=== PATIENT | male | born 1930 | race Caucasian/White ===

== ENCOUNTER 2018-03-20 20:32 | Emergency (ER) | payer MEDICARE ==
[2018-03-20 21:19] LABS: ABS Basophils 0 10^3/ul (0-0.2); ABS Eosinophils 0 10^3/ul (0-0.6); ABS Lymphocytes 0.3 10^3/ul (1.0-4.8); ABS Monocytes 0.2 10^3/ul (0-0.8); ABS Neutrophils 3.1 10^3/ul (1.5-7.7); ABS Nucleated RBC 0 10^3/ul; Eosinophil % 0.8 % (0-6); Hematocrit 33 % (42-52); Hemoglobin 11.6 g/dl (14.0-18.0); Lymphocyte % 8.3 % (25-47); Mean Corpuscular HGB Conc 35 g/dl (31-36); Mean Corpuscular Hemoglobin 35 pg (27-31); Mean Corpuscular Volume 101 fL (80-94); Mean Platelet Volume 6.5 um3 (7.4-10.4); Nucleated Red Blood Cells % 0.1; Platelet Count 136 10^3/ul (150-450); Red Blood Count 3.31 10^6/ul (4.00-5.40); Red Cell Distribution Width 13 % (10.5-15); White Blood Count 3.7 10^3/ul (3.5-10.8)
[2018-03-20 21:32] LABS: INR 1.5 (0.77-1.02)
[2018-03-20 21:35] LABS: EGFR Non-African American 98.1 (>60)
--- NOTE | 2018-03-20 21:55 | RAD ---
EXAM: CT Head Without Intravenous Contrast CLINICAL HISTORY: 87 years old, male; Injury or trauma; Fall TECHNIQUE: Axial computed tomography images of the head/brain without intravenous contrast. All CT scans at this facility use at least one of these dose optimization techniques: automated exposure control; mA and/or kV adjustment per patient size (includes targeted exams where dose is matched to clinical indication); or iterative reconstruction. COMPARISON: CT BRAIN WO 07/30/2014 3:15 AM FINDINGS: Brain: Diffuse cerebral cortical volume loss. Geographic areas of decreased density in the subcortical and periventricular white matter consistent with microvascular leukoencephalopathy. No evidence of acute intracranial hemorrhage. No intracranial mass or mass effect. Ventricles: Ventriculomegaly commensurate with the degree of cerebral cortical volume loss and white matter disease. No obstructive hydrocephalus. Bones/joints: Unremarkable. No acute fracture. Soft tissues: Soft tissue swelling overlying the left frontal calvarium. No underlying fracture. Vasculature: Vascular calcification. Sinuses: Unremarkable as visualized. No acute sinusitis. Mastoid air cells: Unremarkable as visualized. No mastoid effusion. Other findings: Since prior CT study of 08/09/2012, no new findings except for the soft tissue swelling overlying the left frontal calvarium. IMPRESSION: 1. Soft tissue swelling overlying the left frontal calvarium. No underlying fracture. 2. No acute intracranial hemorrhage. No intracranial mass or obstructive hydrocephalus.
--- NOTE | 2018-03-20 22:17 | RAD ---
EXAM: CT Maxillofacial Without Intravenous Contrast CLINICAL HISTORY: 87 years old, male; Injury or trauma; Fall; Initial encounter; Laceration; Head/scalp and forehead; Without loss of consciousness; Without residual foreign body; Additional info: Fall, facial injury TECHNIQUE: Axial computed tomography images of the face without intravenous contrast. All CT scans at this facility use at least one of these dose optimization techniques: automated exposure control; mA and/or kV adjustment per patient size (includes targeted exams where dose is matched to clinical indication); or iterative reconstruction. Coronal and sagittal reformatted images were created and reviewed. COMPARISON: No relevant prior studies available. FINDINGS: Bones/joints: No evidence of an acute facial fracture. Degenerative changes of the left temporal mandibular joint. No evidence of a nasal arch fracture. The perpendicular plate is deviated to the left of midline. Soft tissues: Soft tissue swelling overlying the left frontal calvarium. No underlying fracture. Orbits: Unremarkable. Sinuses: Mild mucoperiosteal thickening involving the right maxillary sinus. No air-fluid levels. Dental: Dental caries. There is disruption of the outer bony cortex of the maxilla involving a canine tooth on the left side with periapical lucency. Other carious tooth with some shows the presence of periapical lucencies. No evidence of an associated subcutaneous abscess. IMPRESSION: 1. Soft tissue swelling overlying the left frontal calvarium. No underlying fracture. No facial fracture. 2. Degenerative changes of the left temporomandibular joint. 3. Dental caries.
--- NOTE | 2018-03-20 22:20 | RAD ---
EXAM: CT Cervical Spine Without Intravenous Contrast CLINICAL HISTORY: 87 years old, male; Pain and injury or trauma; Fall; Initial encounter; Laceration; Without foreign body; Neck pain TECHNIQUE: Axial computed tomography images of the cervical spine without intravenous contrast. All CT scans at this facility use at least one of these dose optimization techniques: automated exposure control; mA and/or kV adjustment per patient size (includes targeted exams where dose is matched to clinical indication); or iterative reconstruction. Coronal and sagittal reformatted images were created and reviewed. COMPARISON: No relevant prior studies available. FINDINGS: Vertebrae: No evidence of an acute fracture involving the cervical vertebral bodies or posterior elements. Straightening of the normal cervical lordosis. No pathologic subluxation. Discs/spinal canal/neural foramina: Multilevel degenerative cervical disc disease and facet disease. No significant central canal stenosis. Variable degrees of neural foraminal narrowing secondary to degenerative changes of the uncovertebral joints and facet joints. Soft tissues: Unremarkable. Vasculature: Bilateral carotid artery calcification. Lung apices: Unremarkable as visualized. Other findings: Calcification of the ligaments and capsule surrounding the dens. This is consistent with calcium pyrophosphate deposition disease. IMPRESSION: 1. No evidence of acute fracture involving the cervical vertebral bodies or posterior elements. 2. Multilevel degenerative cervical disc disease and facet disease. No central canal stenosis. No significant bony neuroforaminal narrowing.
[2018-03-20] MEDS ORDERED: Lidocaine 1%* 5 ML VIAL INJ ONE (22:24)
--- NOTE | 2018-03-20 23:08 | ED ---
Laceration/Wound HPI - HPI Summary HPI Summary: Patient is a 87 y/o M BIBA w/ c/o laceration on nose, laceration on right side of face due to fall at 1800. Patient was in wheelchair, fell forward, and hit wooden piece of furniture. He states fall was not hard and reports that he has been drinking tonight. Patient states that he is on a blood thinner. LOC and spinal pain is denied. On triage, pain is denied and nothing is noted to aggravate/alleviate Sx. Home medications and allergies are reviewed. - History of Current Complaint Stated Complaint: FALL/HEAD LAC Time Seen by Provider: 03/20/18 20:40 Hx Obtained From: Patient Onset/Duration: Sudden Onset, Still Present Aggravating: Nothing Alleviating: Nothing Current Severity: None Pain Intensity: 0 Pain Scale Used: 0-10 Numeric - 0/10 - Allergy/Home Medications Allergies/Adverse Reactions: Allergies Allergy/AdvReac Type Severity Reaction Status Date / Time pregabalin [From Lyrica] Allergy Unknown Verified 03/20/18 21:00 Reaction Details Home Medications: Home Medications amLODIPine TAB* [Norvasc 5 mg TAB*] 5 mg PO DAILY 03/20/18 [History Confirmed ] PMH/Surg Hx/FS Hx/Imm Hx Cardiovascular History: Reports: Hx Hypercholesterolemia, Hx Hypertension, Hx Rheumatic Fever, Other Cardiovascular Problems/Disorders - stents GI History: Reports: Other GI Disorders - occassional pelvic pain associated with bm's not treated at this time History: Reports: Other Problems/Disorders - URINARY INCONTINENCE Musculoskeletal History: Reports: Other Musculoskeletal History - right hip replacement, uses cane r/t pain Sensory History: Reports: Hx Contacts or Glasses, Hx Hearing Problem Opthamlomology History: Reports: Hx Contacts or Glasses Neurological History: Reports: Other Neuro Impairments/Disorders - WEAKNESS LEFT HAND Psychiatric History: Reports: Hx Anxiety - Cancer History Cancer Type, Location and Year: PROSTATE CA - Surgical History Surgery Procedure, Year, and Place: hip replacement right,prostatectomy cancer 1992 , cardiac stent. R fem pop bypass jul 2012; right below knee amputation Infectious Disease History: No Infectious Disease History: Denies: Traveled Outside the [place] in Last 30 Days - Family History Known Family History: Negative: Blood Disorder - Social History Alcohol Use: Daily Substance Use Type: Reports: None Hx Tobacco Use: Yes Smoking Status (MU): Light Every Day Tobacco Smoker Type: Cigars Amount Used/How Often: 1 or 2 a day Have You Smoked in the Last Year: Yes Review of Systems Negative: Fever - on vitals, temp is 98.8 F Positive: Other - laceration on nose, laceration on right side of face All Other Systems Reviewed And Are Negative: Yes Physical Exam - Summary Physical Exam Summary: Appearance: Well appearing, no pain distress Skin: warm, dry, reflects adequate perfusion; bleeding, small laceration on his nose; bleeding laceration of his left ear. Small skin tear on right hand and right forearm Head/face: normal Eyes: EOMI, TERE ENT: normal Neck: supple, non-tender Respiratory: CTA, breath sounds present Cardiovascular: RRR, pulses symmetrical. Abdomen: non-tender, soft Bowel Sounds: present Musculoskeletal: strength/ROM intact; right below the knee amputation due to blood coot, 3+ pulses in LLE Neuro: normal, sensory motor intact, A&Ox3 Triage Information Reviewed: Yes Vital Signs On Initial Exam: Initial Vitals Temp Pulse Resp BP Pulse Ox 98.8 F 65 24 113/60 95 03/20/18 20:35 03/20/18 20:35 03/20/18 20:35 03/20/18 20:35 03/20/18 20:35 Vital Signs Reviewed: Yes Procedures - Procedure Summary Procedure Summary: YUDITH performed laceration repair. Diagnostics - Vital Signs Vital Signs Temp Pulse Resp BP Pulse Ox 03/20/18 22:22 69 116/55 98 03/20/18 22:00 59 93 03/20/18 21:53 68 107/48 97 03/20/18 21:00 66 95 03/20/18 20:53 65 113/60 94 03/20/18 20:52 52 92 03/20/18 20:35 98.8 F 65 24 113/60 95 - Laboratory Lab Results: Lab Results 03/20/18 03/20/18 03/20/18 Range/Units 21:09 21:09 21:09 WBC 3.7 (3.5-10.8) 10^3/ul RBC 3.31 L (4.00-5.40) 10^6/ul Hgb 11.6 L (14.0-18.0) g/dl Hct 33 L (42-52) % MCV 101 H (80-94) fL MCH 35 H (27-31) pg MCHC 35 (31-36) g/dl RDW 13 (10.5-15) % Plt Count 136 L (150-450) 10^3/ul MPV 6.5 L (7.4-10.4) um3 Neut % (Auto) 84.9 H (38-83) % Lymph % (Auto) 8.3 L (25-47) % [place] % (Auto) 4.9 (0-7) % Eos % (Auto) 0.8 (0-6) % Baso % (Auto) 1.1 (0-2) % Absolute Neuts (auto) 3.1 (1.5-7.7) 10^3/ul Absolute Lymphs (auto) 0.3 L (1.0-4.8) 10^3/ul Absolute Monos (auto) 0.2 (0-0.8) 10^3/ul Absolute Eos (auto) 0 (0-0.6) 10^3/ul Absolute Basos (auto) 0 (0-0.2) 10^3/ul Absolute Nucleated RBC 0 10^3/ul Nucleated RBC % 0.1 INR (Anticoag Therapy) 1.50 H (0.77-1.02) Sodium 129 L (135-145) mmol/L Potassium 3.6 (3.5-5.0) mmol/L Chloride 98 L (101-111) mmol/L Carbon Dioxide 23 (22-32) mmol/L Anion Gap 8 (2-11) mmol/L BUN 16 (6-24) mg/dL Creatinine 0.75 (0.67-1.17) mg/dL Est GFR ( Amer) 118.7 (>60) Est GFR (Non-Af Amer) 98.1 (>60) BUN/Creatinine Ratio 21.3 H (8-20) Glucose 113 H (70-100) mg/dL Calcium 8.7 (8.6-10.3) mg/dL Serum Alcohol (<10) mg/dL 03/20/18 Range/Units 21:11 WBC (3.5-10.8) 10^3/ul RBC (4.00-5.40) 10^6/ul Hgb (14.0-18.0) g/dl Hct (42-52) % MCV (80-94) fL MCH (27-31) pg MCHC (31-36) g/dl RDW (10.5-15) % Plt Count (150-450) 10^3/ul MPV (7.4-10.4) um3 Neut % (Auto) (38-83) % Lymph % (Auto) (25-47) % [place] % (Auto) (0-7) % Eos % (Auto) (0-6) % Baso % (Auto) (0-2) % Absolute Neuts (auto) (1.5-7.7) 10^3/ul Absolute Lymphs (auto) (1.0-4.8) 10^3/ul Absolute Monos (auto) (0-0.8) 10^3/ul Absolute Eos (auto) (0-0.6) 10^3/ul Absolute Basos (auto) (0-0.2) 10^3/ul Absolute Nucleated RBC 10^3/ul Nucleated RBC % INR (Anticoag Therapy) (0.77-1.02) Sodium (135-145) mmol/L Potassium (3.5-5.0) mmol/L Chloride (101-111) mmol/L Carbon Dioxide (22-32) mmol/L Anion Gap (2-11) mmol/L BUN (6-24) mg/dL Creatinine (0.67-1.17) mg/dL Est GFR ( Amer) (>60) Est GFR (Non-Af Amer) (>60) BUN/Creatinine Ratio (8-20) Glucose (70-100) mg/dL Calcium (8.6-10.3) mg/dL Serum Alcohol 99 H (<10) mg/dL Result Diagrams: 03/20/18 21:09 03/20/18 21:09 Lab Statement: Any lab studies that have been ordered have been reviewed, and results considered in the medical decision making process. - CT Maxillofacial CT CT Interpretation: Positive (See Comments) CT Interpretation Completed By: Radiologist - 1. Soft tissue swelling overlying the left frontal calvarium. No underlying fracture. No facial fracture. 2. Degenerative changes of the left temporomandibular joint. 3. Dental caries. This report was reviewed by ED physician. CT Cervical Spine CT Interpretation: No Acute Changes CT Interpretation Completed By: Radiologist - 1. No evidence of acute fracture involving the cervical vertebral bodies or posterior elements. 2. Multilevel degenerative cervical disc disease and facet disease. No central canal stenosis. No significant bony neuroforaminal narrowing. This report was reviewed by ED physician. CT Brain CT Interpretation: No Acute Changes CT Interpretation Completed By: Radiologist - 1. Soft tissue swelling overlying the left frontal calvarium. No underlying fracture. 2. No acute intracranial hemorrhage. No intracranial mass or obstructive hydrocephalus. This report was reviewed by ED physician. Re-Evaluation - Re-Evaluation First Eval Re-Evaluation Time: 22:43 Change: Improved Comment: Patient has received stitches for laceration. Discussed results of labs and tests with patient. He is agreeable with discharge to home. Laceration Repair Course/Dx - Course Course Of Treatment: Wheelchair-bound man fell from the chair after drinking heavily at home. Also on Coumadin. Bleeding is stopped here. He was cleaned up and his lacerations were repaired by the physician shipping assistant. CT of the head , face, C-spine are all negative. INR is 1.5. Refer back to primary care for dosing. Encouraged to discontinue drinking especially at this level. *See the physician shipping assistant's note for wound repair note - Differential Dx Differental Diagnoses: Other - Intracranial injury, facial fracture, C-spine fracture, elevated INR - Clinical Impression Provider Diagnoses: Fall, Facial laceration, Alcohol intoxication Discharge - Sign-Out/Discharge Documenting (check all that apply): Patient Departure - discharge - Discharge Plan Condition: Improved Disposition: HOME Patient Education Materials: At-Risk Alcohol Use (ED), Facial Laceration (ED) Referrals: Carlin Arce MD [Primary Care Provider] - Additional Instructions: Dress wounds with bacitracin ointment twice daily. Return to ER or urgent care or your doctor for suture removal in 7 days' time. Return with uncontrolled bleeding, headaches, vomiting, altered mental status, worse or other concerns. Never drink to excess. - Billing Disposition and Condition Condition: IMPROVED Disposition: Home - Attestation Statements Document Initiated by Scribe: Yes Documenting Scribe: Teo Johns Provider For Whom Scribe is Documenting (Include Credential): Gulshan Chavira MD Scribe Attestation: Teo Nolasco, scribed for Gulshan Chavira MD on 03/21/18 at 0634. Scribe Documentation Reviewed: Yes Provider Attestation: The documentation as recorded by the scribe, Teo Johns accurately reflects the service I personally performed and the decisions made by me, Gulshan Chavira MD
--- NOTE | 2018-03-20 23:24 | PN ---
Progress Note - Progress Note Date of Service: 03/20/18 Note: Laceration repair: 2cm irregular laceration to the left ear just medial to the tragus was cleaned and irrigated using NS and hibiclens. 5 5-0 sutures placed. Typical sterile fashion used. Two very small superficial areas to the distal tip of nose were cleaned and a piece of elvie pad was placed to obtain hemostasis. Pt. tolerated well.
[2018-03-20 23:56] VITALS: BP 117/67
== END 2018-03-20 23:40 | disposition home or self-care (01) ==
LOC: ED 20:32
DX: S01.21XA Laceration without foreign body of nose, initial encounter (principal); S01.312A Laceration without foreign body of left ear, initial encounter; W05.0XXA Fall from non-moving wheelchair, initial encounter; Y93.9 Activity, unspecified; Y92.9 Unspecified place or not applicable; I10 Essential (primary) hypertension; Z85.46 Personal history of malignant neoplasm of prostate; Z96.641 Presence of right artificial hip joint; Z89.511 Acquired absence of right leg below knee; Z95.5 Presence of coronary angioplasty implant and graft; Z88.8 Allergy status to other drugs, medicaments and biological substances; F17.290 Nicotine dependence, other tobacco product, uncomplicated
CPT/HCPCS: 12011; 36415; 70450; 70486; 72125; 80048; 80320; 85025; 85610; 99283; G0480